=== PATIENT | female | born 1995 | race African-American/Black ===

== ENCOUNTER 2017-08-23 01:13 | Emergency (ER) | payer SELFPAY ==
[~2017-08-23] VITALS: Ht 154.9 cm; Wt 50.0 kg
[2017-08-23] MEDS ORDERED: IBUPROFEN 600MG TABLET PO ONE (09:30)
[2017-08-23] MEDS ORDERED: BACITRACIN ZINC OINT UDPKT TOP ONE (09:30)
[2017-08-23 10:20] VITALS: BP 106/59
== END 2017-08-23 11:03 | disposition home or self-care (01) ==
LOC: ER 01:13
DX: S60.222A Contusion of left hand, initial encounter (principal); S60.512A Abrasion of left hand, initial encounter; F12.10 Cannabis abuse, uncomplicated; W34.010A Accidental discharge of airgun, initial encounter; Y93.89 Activity, other specified; Y92.89 Other specified places as the place of occurrence of the external cause; Y99.8 Other external cause status
CPT/HCPCS: 99283

== ENCOUNTER 2017-12-11 03:19 | Emergency (ER) | payer SELFPAY ==
[~2017-12-11] VITALS: Ht 154.9 cm; Wt 49.5 kg
[2017-12-11] MEDS ORDERED: CEFTRIAXONE SODIUM 250 MG/VIAL IM ONE (06:45)
[2017-12-11] MEDS ORDERED: AZITHROMYCIN 500 MG TABLET PO ONE (06:45)
[2017-12-11 06:56] VITALS: BP 106/74
[2017-12-11 08:05] LABS: KETONES URINE TRACE (NEGATIVE); LEUKOCYTE ESTERASE URINE NEGATIVE (NEGATIVE); NITRITE URINE NEGATIVE (NEGATIVE); OCCULT BLOOD URINE NEGATIVE (NEGATIVE); PH URINE 5.5 (4.5-8.0); PROTEIN URINE 1+ (NEGATIVE); SPECIFIC GRAVITY URINE 1.023 (1.005-1.030); UROBILINOGEN URINE 0.2 E.U./dL (0.2-1.0)
[2017-12-11 08:17] LABS: CLARITY URINE SL HAZY (CLEAR); COLOR URINE YELLOW (YELLOW)
== END 2017-12-11 07:33 | disposition home or self-care (01) ==
LOC: ER 03:19
DX: T74.21XA Adult sexual abuse, confirmed, initial encounter (principal)
CPT/HCPCS: 81003; 96372; 99283; J0696; Z7610